=== PATIENT | female | born 1985 | race Caucasian/White ===

== ENCOUNTER 2020-03-16 09:16 | Outpatient (CLI) | payer BC ==
--- NOTE | 2020-03-16 10:23 | ULT ---
US Renal Bilateral STANDARD: 03/16/2020 9:19 AM CLINICAL HISTORY: Urinary tract infection. STUDY: Renal ultrasound COMPARISON: None. FINDINGS: Right kidney: Echogenicity: Normal. Masses/cysts: Multiple cysts measuring up to 2.0 cm in size. Hydronephrosis: None. Calcifications: None. Length: 10.6 cm Left kidney: Echogenicity: Normal. Masses/cysts: Multiple cysts measuring up to 2.4 cm in size. Hydronephrosis: None. Calcifications: None. Length: 10.9 cm The urinary bladder was not visualized. IMPRESSION: Bilateral renal cysts
== END 2020-03-16 09:17 | disposition home or self-care (01) ==
LOC: BICULT 09:16
PROVIDERS: ATTEND Obstetrics & Gynecology
DX: N39.0 Urinary tract infection, site not specified (principal); N28.1 Cyst of kidney, acquired
CPT/HCPCS: 76770

== ENCOUNTER 2020-06-01 13:35 | Outpatient (CLI) | payer BC, OTHER ==
[~2020-06-01 13:35] MED LIST: Iopamidol 370 76% 100 ML VIAL ONE
--- NOTE | 2020-06-01 14:41 | CT ---
CT Abdomen Pelvis W WO con: 06/01/2020 2:00 PM CLINICAL HISTORY: Kidney stones and hematuria. Renal cysts.. TECHNIQUE: Multiple contiguous axial images were obtained and a CT of the abdomen and pelvis without and with IV contrast. Postcontrast images were obtained in the nephrographic and excretory phases. Sagittal and coronal reformats were performed. COMPARISON: 07/11/2012 FINDINGS: Kidneys and Urinary Tract: Right kidney and ureter: Multiple calculi measuring up to 5 mm in size. No hydronephrosis or hydroure ter. Multiple cysts measuring up to 2.4 cm in size. No urothelial lesions: no filling defect, dilation, stricture or wall thickening. Left kidney and ureter: Multiple calculi measuring up to 7 mm in size. No hydronephrosis or hydrouret er. Multiple cysts measuring up to 2.2 cm in size. No urothelial lesions: no filling defect, dilation, stricture or wall thickening. Urinary bladder: Phleboliths are seen in the pelvis. Normal, no calculi, mass or other lesions. Remainder of Abdomen and Pelvis: Liver: Normal. Gallbladder and biliary system: Normal. No CT evident gallstones. No biliary ductal dilatation. Spleen: Normal. Pancreas: Normal. Adrenal glands: Normal. GI tract: Normal. Normal appendix. Abdominal aorta and its major branches: Normal. No aneurysm. Peritoneum/retroperitoneum: Normal. No ascites. No adenopathy. Pelvic structures: The reproductive organs are unremarkable. There is a dominant follicle in the left ovary measuring 2.8 cm in size. No pelvic lymphadenopathy. Body wall and musculoskeletal: Normal. Visualized lower thorax: Normal. No pulmonary parenchymal mass or pleural effusion. IMPRESSION: 1. Bilateral nonobstructing renal calculi 2. Bilateral renal cysts
== END 2020-06-01 13:36 | disposition home or self-care (01) ==
LOC: BICCT 13:35
PROVIDERS: ATTEND Urology
DX: N20.0 Calculus of kidney (principal); N28.1 Cyst of kidney, acquired; R31.29 Other microscopic hematuria; N39.0 Urinary tract infection, site not specified
CPT/HCPCS: 74178; Q9967

== ENCOUNTER 2023-08-29 09:12 | Outpatient (CLI) | payer OTHER | END 2023-08-29 09:13 | disposition home or self-care (01) | LOC: BICMAMMO 09:12 | PROVIDERS: ATTEND Physician Assistant | DX: N64.4 Mastodynia (principal) | CPT/HCPCS: 77066; G0279 ==